=== PATIENT | female | born 1990 | race Caucasian/White ===

== ENCOUNTER 2022-10-28 15:56 | Emergency (ER) | payer SELFPAY ==
[~2022-10-28] VITALS: Ht 170.2 cm; Wt 83.9 kg
[2022-10-28] VITALS (10 sets, daily range): BP systolic 88–116; BP diastolic 50–72
[2022-10-28] MEDS ORDERED: KEFLEX500 MG PO (16:23)
[2022-10-28] MEDS ORDERED: CYCLOBENZAPRINE HCL PO (16:26)
[2022-10-28] MEDS ORDERED: LOVENOX40 MG/0.4 SC (16:26)
[2022-10-28] MEDS ORDERED: PENTOXIFYLLI400 M1 PO (16:27)
[2022-10-28 16:38] LABS: BASO% 0.3 % (0-3); EOS% 2.8 % (0-8); HEMATOCRIT 36.8 % (37.0-47.0); HEMOGLOBIN 11.8 g/dl (12.0-16.0); IMMATURE GRANULOCYTES 0.4 % (0.0-5.0); LYMPH% 16.9 % (15-41); MEAN CELL VOLUME 89.1 fL CALC (80.0-100.0); MEAN CORPUSCULAR HGB 28.6 pG CALC (26.0-32.0); MEAN CORPUSCULAR HGB CONC 32.1 g/dL CAL (32.0-36.0); MONO% 7.3 % (2-13); NEUT# 7.32 thou/uL (2.00-7.15); NEUT% 72.3 % (42-76); RED BLOOD COUNT 4.13 mill/uL (4.20-5.60); RED CELL DISTRI WIDTH 12.7 % (11.5-15.5)
[2022-10-28 16:50] LABS: ALBUMIN 3.7 g/dL (3.2-5.0); ALKALINE PHOSPHATASE 70 u/l (38-126); ANION GAP 14 (6-22 (CALC)); BILIRUBIN, TOTAL 0.4 mg/dL (0.02-1.3); BUN 11 mg/dL (7-17); BUN/CREATININE RATIO 18 (12-20 (CALC)); CARBON DIOXIDE 24 mmol/l (22-30); CHLORIDE 102 mmol/l (95-108); CREATININE 0.6 mg/dL (0.5-1.0); GFR FOR AFR.AMER. > 60 ML/MIN (>=60 (CALC)); GFR OTHER RACES > 60 ML/MIN (>=60 (CALC)); POTASSIUM 4.2 mmol/l (3.5-5.1); SGOT/AST 62 u/l (14-36); SODIUM 136 mmol/l (137-146); TOTAL PROTEIN 6.6 g/dL (6.3-8.2)
[2022-10-28] MEDS ORDERED: ZOFRAN4 MG/TAB PO (18:34)
[2022-10-28] MEDS ORDERED: DIFLUCAN150 MG PO (18:34)
[2022-10-28] MEDS ORDERED: ZPAK PO (18:34)
[2022-10-28] MEDS ORDERED: BACTRIM DS1 TAB PO (18:34)
[2022-10-28] MEDS ORDERED: TRAMADOL HYDROC50 M1 PO (18:36)
== END 2022-10-28 21:02 | disposition home or self-care (01) | DRG 195 ==
LOC: ED 15:56
PROVIDERS: Family Medicine
DX: J18.9 Pneumonia, unspecified organism (principal); R10.9 Unspecified abdominal pain; Z98.890 Other specified postprocedural states
CPT/HCPCS: Q9967